=== PATIENT | male | born 1980 | race Caucasian/White ===

== ENCOUNTER 2018-06-01 08:57 | Emergency (ER) | payer BC ==
[~2018-06-01] VITALS: Ht 167.6 cm; Wt 115.3 kg
[~2018-06-01 08:57] MED LIST: ALEVE220 MG PO; CHANTIX1 MG PO; PROTONIX40 MG PO; ZANTAC150 MG PO
[2018-06-01] MEDS ORDERED: XANAX0.25 MG PO (10:47)
[2018-06-01 11:06] VITALS: BP 126/95
== END 2018-06-01 11:25 | disposition home or self-care (01) ==
LOC: EME 08:57
DX: F41.9 Anxiety disorder, unspecified (principal); F43.10 Post-traumatic stress disorder, unspecified; F43.23 Adjustment disorder with mixed anxiety and depressed mood; K21.9 Gastro-esophageal reflux disease without esophagitis; Z98.84 Bariatric surgery status; F17.200 Nicotine dependence, unspecified, uncomplicated
CPT/HCPCS: 90839; 99281; 99284